=== PATIENT | male | born 1990 | race African-American/Black ===

== ENCOUNTER 2018-03-15 09:19 | Emergency (ER) | payer SELFPAY ==
[~2018-03-15] VITALS: Ht 175.3 cm; Wt 82.0 kg
[2018-03-15 09:23] VITALS: BP 102/55
[2018-03-15] MEDS ORDERED: CEFTRIAXONE SODIUM 250 MG/VIAL IM ONE (10:15)
[2018-03-15] MEDS ORDERED: AZITHROMYCIN 500 MG TABLET PO ONE (10:45)
[2018-03-15] MEDS: AZITHROMYCIN 500 MG TABLET PO NR ×2 (10:57→11:20)
[2018-03-15 11:04] LABS: CLARITY URINE CLEAR (CLEAR); COLOR URINE YELLOW (YELLOW); KETONES URINE NEGATIVE (NEGATIVE); LEUKOCYTE ESTERASE URINE 1+ (NEGATIVE); NITRITE URINE NEGATIVE (NEGATIVE); OCCULT BLOOD URINE NEGATIVE (NEGATIVE); PH URINE 6.5 (4.5-8.0); PROTEIN URINE NEGATIVE (NEGATIVE); SPECIFIC GRAVITY URINE 1.027 (1.005-1.030)
== END 2018-03-15 11:00 | disposition home or self-care (01) ==
LOC: ER 09:42
DX: N34.2 Other urethritis (principal); F12.10 Cannabis abuse, uncomplicated
CPT/HCPCS: 81003; 87086; 96372; 99284; J0696; Z7610